=== PATIENT | male | born 1945 | race African-American/Black ===

== ENCOUNTER 2016-04-23 13:40 | Emergency (ER) | payer MEDICARE ==
[2016-04-23 14:29] VITALS: BP 155/87
--- NOTE | 2016-04-23 14:57 | UC ---
Lower Extremity/Ankle HPI - HPI Summary HPI Summary: 1) Developed blister on L great toe 2+ weeks ago; spot was between 1st and 2nd toe, and onto foot. The blister popped, he's been applying betadine and H2O2, and area seems to be healing slowly. Denies significant pain, drainage, or discoloration. 2) Has had nasal congestion, head mucus production, and "sinus pain" for more than a year. Does not have a PCP currently. - History of Current Complaint Chief Complaint: UCGeneralIllness Stated Complaint: WOUND ON TOE SINUS CONGESTION Time Seen by Provider: 04/23/16 14:31 Hx Obtained From: Patient Onset/Duration: Gradual Onset, Lasting Weeks Severity Initially: Mild Severity Currently: Mild Aggravating Factor(s): Other - wearing shoes Alleviating Factor(s): Rest Able to Bear Weight: Yes - Allergies/Home Medications Allergies/Adverse Reactions: Allergies Allergy/AdvReac Type Severity Reaction Status Date / Time No Known Allergies Allergy Verified 04/23/16 14:30 PMH/Surg Hx/FS Hx/Imm Hx Endocrine History Of: Denies: Diabetes, Thyroid Disease Cardiovascular History Of: Denies: Cardiac Disorders, Hypertension Respiratory History Of: Denies: COPD, Asthma GI/ History Of: Denies: Ulcer - Surgical History Surgical History: Yes Surgery Procedure, Year, and Place: PROSTATE - Family History Known Family History: Negative: Hypertension, Diabetes - Social History Occupation: Employed Full-time - drive truck Alcohol Use: None Substance Use Type: None Smoking Status (MU): Heavy Every Day Tobacco Smoker Type: Cigarettes, Cigars Amount Used/How Often: MORE THAN HALF PACK PER DAY Review of Systems Constitutional: Negative Skin: Other - open area L great toe Eyes: Negative ENT: Nasal Discharge Respiratory: Negative Cardiovascular: Negative Gastrointestinal: Negative Genitourinary: Negative Motor: Negative Neurovascular: Negative Musculoskeletal: Negative Neurological: Negative Psychological: Negative All Other Systems Reviewed And Are Negative: Yes Physical Exam Triage Information Reviewed: Yes Appearance: Well-Appearing, No Pain Distress, Well-Nourished Vital Signs: Initial Vital Signs Temp 98.2 F 04/23/16 14:24 Pulse 73 04/23/16 14:24 Resp 18 04/23/16 14:24 BP 155/87 04/23/16 14:24 Pulse Ox 100 04/23/16 14:24 Vital Signs Reviewed: Yes Eye Exam: Normal Eyes: Positive: Conjunctiva Clear ENT: Positive: Hearing grossly normal, Pharynx normal, Nasal congestion, TMs normal. Negative: Tonsillar swelling Dental Exam: Normal Neck exam: Normal Neck: Positive: Supple, Nontender, No Lymphadenopathy Respiratory Exam: Normal Respiratory: Positive: Chest non-tender, Lungs clear, Normal breath sounds, No respiratory distress, No accessory muscle use Cardiovascular Exam: Normal Cardiovascular: Positive: RRR, No Murmur Musculoskeletal Exam: Normal Neurological Exam: Normal Psychological Exam: Normal Skin Exam: Other - healing erosion L great toe, approx 2cm x 1cm, no erythema or drainage Lower Extremity Course/Dx - Differential Dx/Diagnosis Provider Diagnoses: healing blister L foot. chronic sinusitis. allergic rhinitis Discharge - Discharge Plan Condition: Stable Disposition: HOME Prescriptions: Cetirizine* [ZyrTEC*] 10 mg PO DAILY #30 tab DOXYcycline CAP(*) [DOXYcycline 100MG CAP(*)] 100 mg PO BID #30 cap Mometasone NASAL (NF) [Nasonex (NF)] 1 spray BOTH NARES BID #1 nasal.spr Patient Education Materials: Sinusitis (ED), Allergic Rhinitis (ED), Blister ( ED) Referrals: Shailesh Breg MD [Medical Doctor] - 2 Weeks Additional Instructions: Your foot wound appears to be healing without infection. It has taken a long time to heal because you were using the hydrogen peroxide; now that you have stopped it should continue to close up. Use a nonstick dressing and change it, along with your socks, at least once daily.
== END 2016-04-23 15:05 | disposition home or self-care (01) ==
LOC: UCEAST 13:40
DX: S90.422A Blister (nonthermal), left great toe, initial encounter (principal); F17.210 Nicotine dependence, cigarettes, uncomplicated; J32.9 Chronic sinusitis, unspecified; J30.9 Allergic rhinitis, unspecified; X58.XXXA Exposure to other specified factors, initial encounter; Y92.9 Unspecified place or not applicable
CPT/HCPCS: 99212; G0463

== ENCOUNTER 2017-07-14 11:58 | Emergency (ER) | payer MEDICARE ==
[2017-07-14 12:13] VITALS: BP 149/95
--- NOTE | 2017-07-14 12:43 | UC ---
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 He states this "flares up" from time to time after a fall about 2yrs ago. He is right handed. He experiences pain with movement in the shoulder blade area and constant numbness in the L hand. He doesnt drop anything and maintains strength. He is a smoker. He denies neck pain, sharp radiation of pain or pain at rest. Pain is usually a sharp, grabbing pain with movement. - History of Current Complaint Chief Complaint: UCUpperExtremity Stated Complaint: SHOULDER PAIN FINGERS NUMB Time Seen by Provider: 07/14/17 12:15 Hx Obtained From: Patient Pain Intensity: 7 - Allergies/Home Medications Allergies/Adverse Reactions: Allergies Allergy/AdvReac Type Severity Reaction Status Date / Time No Known Allergies Allergy Verified 07/14/17 12:13 PMH/Surg Hx/FS Hx/Imm Hx Cardiovascular History: Hypertension - takes aspirin only for his blood pressure - Surgical History Surgical History: Yes Surgery Procedure, Year, and Place: PROSTATE - Family History Known Family History: Negative: Hypertension, Diabetes - Social History Alcohol Use: None Substance Use Type: None Smoking Status (MU): Heavy Every Day Tobacco Smoker Type: Cigarettes, Cigars Amount Used/How Often: MORE THAN HALF PACK PER DAY Review of Systems Constitutional: Negative Respiratory: Other - denies cough, hemoptysis Cardiovascular: Negative Gastrointestinal: Negative Motor: Negative, Other - no weakness Neurovascular: Other - numbness in the entire L hand Musculoskeletal: Other: - pain with motion in L post shoulder Neurological: Numbness All Other Systems Reviewed And Are Negative: Yes Physical Exam Triage Information Reviewed: Yes Appearance: Well-Appearing, No Pain Distress, Well-Nourished Vital Signs: Initial Vital Signs Temp 36.4 C 07/14/17 12:10 Pulse 71 07/14/17 12:10 Resp 12 07/14/17 12:10 BP 149/95 07/14/17 12:10 Pulse Ox 98 07/14/17 12:10 Vital Signs Reviewed: Yes Eye Exam: Normal ENT: Positive: Normal ENT inspection Neck exam: Normal Neck: Positive: Supple, Nontender Respiratory Exam: Normal Respiratory: Positive: Chest non-tender, Lungs clear, Normal breath sounds Cardiovascular: Positive: RRR, No Murmur Musculoskeletal: Positive: Other: - no tenderness with palpation in the L post shoulder area. No lesions or rash. No crepitance thru ROM. Full ROM actively. No laxity. Neurological: Positive: Alert, Other: - subjective numbness in the L hand with decreased light touch sensation. No thenar/hypothenar wasting. Psychological Exam: Normal Skin Exam: Normal Diagnostics - Radiology No standard instances Xray Interpretation: Positive (See Comments) - Xray L shoulder: NEG Cervical Spine: Severe degen arthritis and compression C4-6. Cervical straightening. Radiology Interpretation Completed By: ED Physician Upper Extremity Course/Dx - Course Course Of Treatment: Pt with sx suspicious for radiculopathy. Xray confirms severe degenerative changes. Refer to PMD/ortho. Rx for arthritis (mobic) and radiculopathy (prednisone). - Differential Dx/Diagnosis Differential Diagnosis/HQI/PQRI: Arthritis, Fracture (Open), Osteomyelitis, Other - DJD/DDD, radiculopathy Provider Diagnoses: Cervical radiculopathy. L hand numbness. Degenerative osteoarthritis of the cervical spine Discharge - Sign-Out/Discharge Documenting (check all that apply): Discharge - Discharge Plan Condition: Good Disposition: HOME Referrals: No Primary Care Phys,NOPCP [Primary Care Provider] - - Billing Disposition and Condition Condition: GOOD Disposition: HOME
--- NOTE | 2017-07-14 13:01 | RAD ---
INDICATION: Neck pain with numbness down the left upper extremity COMPARISON: None. TECHNIQUE: 4 views of the cervical spine were obtained. FINDINGS: C1-C7 are visualized. Degenerative changes of the cervical spine include loss of intervertebral disc height and marginal osteophyte formation. These changes are most severe at C4-C7. There is a faint degree of C2 over C3 anterolisthesis. There is mild straightening of the normal cervical lordosis otherwise. There is no acute fracture. There is no prevertebral soft tissue swelling. IMPRESSION: Degenerative changes of the cervical spine as described above. If the patient's symptoms persist, follow-up imaging is recommended.
--- NOTE | 2017-07-14 13:02 | RAD ---
INDICATION: Chronic left shoulder pain. COMPARISON: None. TECHNIQUE: 4 views of the left shoulder were obtained. FINDINGS: The adequately corticated bones are in normal alignment. The glenohumeral joint exhibits mild sclerotic change of the bony glenoid labrum. There is a small degree of widening of the acromioclavicular joint measuring 7 mm in width. No fracture, dislocation or focal bony abnormality is seen. IMPRESSION: 1. MILDLY INCREASED JOINT SPACE OF THE LEFT ACROMION CLAVICULAR JOINT COULD BE SEEN IN THE SETTING OF GRADE 1 AC JOINT SEPARATION. 2. OTHERWISE AGE-APPROPRIATE DEGENERATIVE CHANGES ARE NOTED. If the patient's symptoms persist, follow-up imaging is recommended.
== END 2017-07-14 13:11 | disposition home or self-care (01) ==
LOC: UCEAST 11:58
DX: M47.22 Other spondylosis with radiculopathy, cervical region (principal); R20.0 Anesthesia of skin; I10 Essential (primary) hypertension; F17.210 Nicotine dependence, cigarettes, uncomplicated
CPT/HCPCS: 72040; 99212; G0463

== ENCOUNTER 2017-12-09 12:25 | Emergency (ER) | payer MEDICARE ==
[2017-12-09 13:06] VITALS: BP 141/88
--- NOTE | 2017-12-09 13:59 | UC ---
Lower Extremity/Ankle HPI - HPI Summary HPI Summary: PT C/O INTERMITTENT PAIN AND SWELLING IN LEFT GREAT TOE OVER THE PAST 5-6 MONTHS. HAS NOT SOUGHT EVALUATION BEFORE. STATES IT FLARED ABOUT A WEEK AGO. IS A BIT BETTER TODAY BUT STILL FEELS HOT AND SWOLLEN. DENIES TRAUMA. - History of Current Complaint Chief Complaint: UCLowerExtremity Stated Complaint: SWOLLEN FOOT Time Seen by Provider: 12/09/17 13:41 Hx Obtained From: Patient Onset/Duration: Gradual Onset, Lasting Weeks, Still Present Severity Initially: Moderate Severity Currently: Moderate Pain Intensity: 6 Pain Scale Used: 0-10 Numeric Aggravating Factor(s): Standing, Ambulation Alleviating Factor(s): Rest, Elevation Able to Bear Weight: Yes - WITH PAIN - Allergies/Home Medications Allergies/Adverse Reactions: Allergies Allergy/AdvReac Type Severity Reaction Status Date / Time No Known Allergies Allergy Verified 12/09/17 12:54 Home Medications: Home Medications Aspirin 81 mg CHEW TAB* 81 mg PO DAILY 12/09/17 [History Confirmed 12/09/17] PMH/Surg Hx/FS Hx/Imm Hx Cardiovascular History: Hypertension - Surgical History Surgical History: Yes Surgery Procedure, Year, and Place: PROSTATE 1990s - Family History Known Family History: Positive: Hypertension Negative: Diabetes - Social History Alcohol Use: None Substance Use Type: None Smoking Status (MU): Heavy Every Day Tobacco Smoker Type: Cigars Amount Used/How Often: 10 cigars/ day Review of Systems Constitutional: Negative Skin: Negative Respiratory: Negative Cardiovascular: Negative Gastrointestinal: Negative Musculoskeletal: Arthralgia, Decreased ROM, Edema All Other Systems Reviewed And Are Negative: Yes Physical Exam Triage Information Reviewed: Yes Appearance: Well-Appearing, No Pain Distress, Well-Nourished Vital Signs: Initial Vital Signs Temp 98.5 F 12/09/17 12:57 Pulse 78 12/09/17 12:57 Resp 18 12/09/17 12:57 BP 141/88 12/09/17 12:57 Pulse Ox 100 12/09/17 12:57 Vital Signs Reviewed: Yes Eyes: Positive: Conjunctiva Clear ENT: Positive: Hearing grossly normal Neck: Positive: Supple Respiratory: Positive: No respiratory distress, No accessory muscle use Cardiovascular: Positive: Pulses Normal Abdomen Description: Positive: Soft Musculoskeletal: Positive: ROM Limited @ - LEFT GREAT TOE, Edema @ - LEFT GREAT TOE, Other: - LEFT GREAT TOE TTP AND WARM TO TOUCH Neurological: Positive: Alert Psychological: Positive: Age Appropriate Behavior Skin: Negative: rashes Diagnostics - Radiology LEFT GREAT TOE XRAY Xray Interpretation: No Acute Changes Radiology Interpretation Completed By: Radiologist Lower Extremity Course/Dx - Differential Dx/Diagnosis 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 WILL TREAT FOR GOUT WITH PREDNISONE FOR 5 DAYS. STAY WELL HYDRATED. TAKE IBUPROFEN NEEDED FOR DISCOMFORT. RECOMMEND LABS DONE WHEN YOU HAVE BEEN SYMPTOM FREE FOR ABOUT 2 WEEKS[address] [facility] FOR THIS FOLLOW-UP APPOINTMENT. CALL THE NUMBER BELOW FOR ASSISTANCE IN ESTABLISHING WITH A PRIMARY CARE DOCTOR An additional resource available to assist in finding the appropriate physician for your health care needs is the [facility] ([facility]). You may contact them by calling [phone]. IF YOU ARE NOT IMPROVING EXPECTED CONSIDER FOLLOW-UP WITH A RECORDS AND INFORMATION MANAGER (FOOT DOCTOR). PODIATRY IN [facility] Dr. Juanito Babin [address] [place] Dr. Dc Andujar. [address] [place] [address] Please call his office at [phone] to make an appointment to be seen Dr. Ricardo Randhawa. [address] [place] [address] Dr. Jojo Delgado [address] [place] [address] - Billing Disposition and Condition Condition: STABLE Disposition: Home
--- NOTE | 2017-12-09 14:19 | RAD ---
HISTORY: PAIN, SWELLING COMPARISONS: None VIEWS: 3 , Frontal, lateral, and oblique views of the left forefoot FINDINGS: BONE DENSITY: Normal. BONES: There is no displaced fracture. JOINTS: There is no arthropathy. ALIGNMENT: There is no dislocation. SOFT TISSUES: Unremarkable. OTHER FINDINGS: None. IMPRESSION: NO ACUTE OSSEOUS INJURY. IF SYMPTOMS PERSIST, RECOMMEND REPEAT IMAGING.
== END 2017-12-09 14:50 | disposition home or self-care (01) ==
LOC: UCEAST 12:25
DX: M10.9 Gout, unspecified (principal); Z87.891 Personal history of nicotine dependence
CPT/HCPCS: 99213; G0463

== ENCOUNTER 2018-04-19 10:45 | Emergency (ER) | payer MEDICARE ==
[2018-04-19 10:55] VITALS: BP 131/71
--- NOTE | 2018-04-19 11:12 | UC ---
FLU HPI - HPI Summary HPI Summary: 72-year-old male presents with 5 day history of chills, body aches, general malaise, nasal congestion, sore throat, nonproductive cough, mild shortness of breath, and chest tightness. Denies ear pain, dysphagia, chest pain, palpitations, weakness, dizziness, abdominal pain, nausea, vomiting, or diarrhea. Did not receive his flu shot this year. Smokes 4-5 cigars daily. - History of Current Complaint Chief Complaint: UCGeneralIllness Stated Complaint: COUGH,CONGESTED Time Seen by Provider: 04/19/18 11:07 Hx Obtained From: Patient Pain Intensity: 10 - Allergy/Home Medications Allergies/Adverse Reactions: Allergies Allergy/AdvReac Type Severity Reaction Status Date / Time No Known Allergies Allergy Verified 04/19/18 10:55 Home Medications: Home Medications Dm/P-Ephed/Acetaminoph/Doxylam [Nighttime D Cold-Flu Rlf Liq] 296 ml PO ONCE PRN 04/19/18 [History Confirmed 04/19/18] PMH/Surg Hx/FS Hx/Imm Hx Previously Healthy: Yes GI/ History: Other - BPH - Surgical History Surgical History: Yes Surgery Procedure, Year, and Place: PROSTATE 1990s - Family History Known Family History: Positive: Hypertension Negative: Cardiac Disease, Diabetes, Respiratory Disease - Social History Occupation: Employed Full-time Lives: With Family Alcohol Use: None Substance Use Type: None Smoking Status (MU): Heavy Every Day Tobacco Smoker Type: Cigars Amount Used/How Often: 6-7 cigars/ day Household Exposure Type: Cigars Review of Systems All Other Systems Reviewed And Are Negative: Yes Constitutional: Positive: Fever, Chills, Fatigue Skin: Negative: Rash Eyes: Negative: Drainage, Eye Redness ENT: Positive: Sore Throat, Nasal Discharge, Sinus Congestion. Negative: Ear Ache, Sinus Pain/Tenderness Respiratory: Positive: Shortness Of Breath, Cough Cardiovascular: Negative: Palpitations, Chest Pain Gastrointestinal: Negative: Abdominal Pain, Vomiting, Diarrhea, Nausea Is Patient Immunocompromised?: No Physical Exam - Summary Physical Exam Summary: GENERAL APPEARANCE: Ill appearing, well developed, well nourished, alert and cooperative male in no acute distress. EYES: Conjunctiva clear. No discharge. Vision is grossly intact. EARS: External auditory canals and tympanic membranes clear, hearing grossly intact. NOSE: Mild-moderate nasal congestion with mucosal erythema and edema. No nasal discharge noted. THROAT: Pharyngeal erythema. No tonsilar inflammation, swelling, exudate, or lesions. NECK: Neck supple, non-tender without lymphadenopathy. CARDIAC: Normal S1 and S2. No S3, S4 or murmurs. Rhythm is regular. There is no peripheral edema, cyanosis or pallor. Extremities are warm and well perfused. Capillary refill is less than 2 seconds. LUNGS: No acute respiratory distress. Diffuse bilateral wheezes. ABDOMEN: Positive bowel sounds. Soft, nondistended, nontender. No guarding or rebound. No masses or hepatosplenomegally. MUSKULOSKELETAL: ROM intact to all extremities. No joint erythema or tenderness. Normal muscular development. Normal gait. SKIN: Skin normal color, texture and turgor with no lesions or eruptions. Triage Information Reviewed: Yes Vital Signs: Initial Vital Signs Temp 101.3 F 04/19/18 10:50 Pulse 112 04/19/18 10:50 Resp 20 04/19/18 10:50 BP 131/71 04/19/18 10:50 Pulse Ox 97 04/19/18 10:50 Vital Signs Reviewed: Yes Diagnostics - Laboratory Diagnostic Studies Completed/Ordered: Rapid flu positive influenza A. - Radiology No standard instances Radiology Interpretation Completed By: Radiologist Summary of Radiographic Findings: Patient Name: SAL BELL Medical Record#: [id number]. Ordering Physician: Pérez Hampton NP Acct.#: [id number]. : 1945 Age: 72 Sex: M Location: [facility]. Exam Date: 1117 ADM Status: REG ER. Order Information: CHEST PA LAT 2 VWS. Accession Number: [id number]. CPT: 38215. INDICATION: Cough and congestion. COMPARISON: Chest x-ray January 25, 2011. TECHNIQUE: PA and lateral views of the chest were obtained. FINDINGS: The heart and mediastinum are normal in size and contour. The lungs are grossly clear. There is no evidence of large pleural effusion. Visualized bones are normal for the patient's age. There is no radiographic evidence of free air beneath the diaphragm. IMPRESSION: No radiographic evidence of acute cardiopulmonary disease. Re-Evaluation - Re-Evaluation First Eval Re-Evaluation Time: 11:50 Change: Improved Comment: Post-neblizer treatment patient states breathing is much easier and chest tightness resolved. Bilateral breath sounds clear. Flu Course/Dx - Course Course Of Treatment: 72-year-old male presents with 5 day history of chills, body aches, general malaise, nasal congestion, sore throat, nonproductive cough , mild shortness of breath, and chest tightness. Denies ear pain, dysphagia, chest pain, palpitations, weakness, dizziness, abdominal pain, nausea, vomiting , or diarrhea. Did not receive his flu shot this year. Patient was febrile at triage with a temperature of 101.3 F, mildly tachycardic rate of 112, otherwise vital signs stable. Exam reveals ill-appearing male of -[place] descent , nasal congestion, mild pharyngeal erythema, and bilateral diffuse wheezing without acute respiratory distress. Rapid flu test was positive for influenza A. Chest x-ray showed no acute cardiopulmonary pathology. Patient was given a DuoNeb treatment with improvement of the wheezing and chest tightness. Due to duration of his symptoms he is not a good candidate for Tamiflu. Recommending symptomatic treatment including albuterol inhaler 2 puffs every 4-6 hours as needed for shortness of breath and wheezing. He's been counseled to follow up with his primary care provider in 3-5 days for recheck of symptoms. Warning symptoms were reviewed with the patient. He verbalizes understanding and agrees with plan of care. - Differential Dx/Diagnosis Differential Diagnosis/HQI/PQRI: Bronchitis, Influenza, Pneumonia, Upper Respiratory Infection Provider Diagnosis: Influenza A, Reactive airway disease that is not asthma Discharge - Sign-Out/Discharge Documenting (check all that apply): Patient Departure All imaging exams completed and their final reports reviewed: Yes - Discharge Plan Condition: Stable Disposition: HOME Prescriptions: Albuterol HFA INHALER* [Ventolin HFA Inhaler*] 2 puff INH Q4H PRN #1 mdi PRN Reason: Sob/Wheezing Patient Education Materials: Influenza (ED), Wheezing (ED) Referrals: No Primary Care Phys,NOPCP [Primary Care Provider] - Additional Instructions: Your flu test came back positive for the influenza A. Your chest x-ray was normal. Get plenty of rest. Drink plenty of fluids to avoid dehydration especially if you are running any fever. Use albuterol inhaler 2 puffs every 4-6 hours as needed for shortness of breath or wheezing. Take over the counter acetaminophen (Tylenol) or ibuprofen (Advil, Motrin) according to directions as needed for pain or fever. Use salt water gargles several times a day if you have a sore throat. You may also use Chloraseptic spray or Cepacol lonzenges according to directions which contain a numbing medication and can provide some temporary relief from your sore throat. Follow up with your primary care provider in 3-5 days for recheck of symptoms. Seek immediate medical attention in the emergency room if you have fever greater than 100.5 F despite taking acetaminophen or ibuprofen, have chest pain , difficulty breathing, become weak or dizzy, or have any worsening of symptoms. - Billing Disposition and Condition Condition: STABLE Disposition: Home
[2018-04-19] MEDS ORDERED: Albuterol/Ipratropium NEB.SOL* Albuterol 2.5 MG/Ipratropium 0.5 MG 3 ML INH ONE (11:18)
== END 2018-04-19 12:20 | disposition home or self-care (01) ==
LOC: UCEAST 10:45
DX: J09.X2 Influenza due to identified novel influenza A virus with other respiratory manifestations (principal); J45.909 Unspecified asthma, uncomplicated; F17.210 Nicotine dependence, cigarettes, uncomplicated
CPT/HCPCS: 71046; 99212; A9270-GY; G0463

== ENCOUNTER → 2018-08-28 17:12 | Emergency (ER) | payer MEDICARE ==
--- NOTE | 2018-08-28 19:28 | ED ---
Lower Extremity - HPI Summary HPI Summary: 73-year-old male presents with right leg pain for the past couple months. He states that he started getting some numbness and tingling over his right knee. Denies any injury. He states his veins are more prominent. He states gets a cold sensation and sensation on his legs. noticed some swelling in right leg. is on diuretic. Denies any rash. No fevers. denies any chest pain or shortness breath. He is on eliquis for CVA a week ago. Denies any weakness. pain is worse when he ambulates. is able to ambulate. he states that his veins are larger on the right then the left leg. has not missed a dose of eliquis since starting it a week ago. no rash. has chronic back pain that is unchanged. no numbness into thigh or lower leg only in knee. no urinary symptoms. no loss of bowel or bladder or saddle anaesthesia. - History of Current Complaint Chief Complaint: EDExtremityLower Stated Complaint: RIGHT LEG BURNING PER PT Time Seen by Provider: 08/28/18 19:06 Pain Intensity: 0 - Allergies/Home Medications Allergies/Adverse Reactions: Allergies Allergy/AdvReac Type Severity Reaction Status Date / Time No Known Allergies Allergy Verified 08/28/18 17:20 Home Medications: Home Medications Apixaban* [Eliquis*] 5 mg PO BID 08/28/18 [History Confirmed 08/28/18] Atorvastatin* [Lipitor*] 80 mg PO DAILY 08/28/18 [History Confirmed 08/28/18] Carvedilol TAB* [Coreg TAB*] 6.25 mg PO BID 08/28/18 [History Confirmed 08/28/18 ] Furosemide TAB* [Lasix TAB*] 20 mg PO DAILY 08/28/18 [History Confirmed 08/28/18 ] Ipratropium HFA INHALER(NF) [Atrovent Hfa Inhaler(NF)] 1 puff INH Q6H 08/28/18 [ History Confirmed 08/28/18] Losartan TAB* [Cozaar TAB*] 25 mg PO DAILY 08/28/18 [History Confirmed 08/28/18] Spironolactone 25 mg PO DAILY 08/28/18 [History Confirmed 08/28/18] PMH/Surg Hx/FS Hx/Imm Hx Endocrine/Hematology History: Reports: Hx Anticoagulant Therapy Denies: Hx Diabetes, Hx Thyroid Disease Cardiovascular History: Reports: Hx Hypertension Respiratory History: Denies: Hx Asthma, Hx Chronic Obstructive Pulmonary Disease (COPD) GI History: Denies: Hx Ulcer - Surgical History Surgery Procedure, Year, and Place: Infectious Disease History: No Infectious Disease History: Denies: Hx Hepatitis, Hx Human Immunodeficiency Virus (HIV), Traveled Outside the [place] in Last 30 Days - Family History Known Family History: Positive: Hypertension Negative: Cardiac Disease, Diabetes, Respiratory Disease - Social History Alcohol Use: None Substance Use Type: Reports: None Smoking Status (MU): Former Smoker Type: Cigars Amount Used/How Often: 6-7 cigars/ day Review of Systems Positive: Myalgia - right leg pain All Other Systems Reviewed And Are Negative: Yes Physical Exam Triage Information Reviewed: Yes Vital Signs On Initial Exam: Initial Vitals Temp Pulse Resp BP Pulse Ox 98.3 F 69 16 126/76 98 08/28/18 17:15 08/28/18 17:15 08/28/18 17:15 08/28/18 17:15 08/28/18 17:15 Vital Signs Reviewed: Yes Appearance: Positive: Well-Appearing Skin: Positive: Warm, Dry Head/Face: Positive: Normal Head/Face Inspection Eyes: Positive: Normal, Conjunctiva Clear ENT: Positive: Pharynx normal Respiratory/Lung Sounds: Positive: Clear to Auscultation, Breath Sounds Present Cardiovascular: Positive: Normal, RRR Musculoskeletal: Positive: Other - tenderness side of lower back, decreased sensation to top of right knee, prominent varicose veins, tenderness over right calf, good pulses with doppler, neg SLR Neurological: Positive: Normal Psychiatric: Positive: Normal Diagnostics - Vital Signs Vital Signs Temp Pulse Resp BP Pulse Ox 08/28/18 17:15 98.3 F 69 16 126/76 98 - Laboratory Result Diagrams: 08/28/18 20:03 08/28/18 19:21 Lab Statement: Any lab studies that have been ordered have been reviewed, and results considered in the medical decision making process. - Ultrasound No standard instances Ultrasound Interpretation Completed By: Radiologist Summary of Ultrasound Findings: IMPRESSION: No acute findings. No evidence of deep vein thrombosis. Incidental finding of the right mid femoral artery stenosis. Re-Evaluation - Re-Evaluation First Eval Re-Evaluation Time: 20:40 Comment: discussed that waiting on u/s Lower Extremity Course/Dx - Course Course Of Treatment: 73-year-old male presents with right leg pain for the past couple months. He states that he started getting some numbness and tingling over his right knee. Denies any injury. He states his veins are more prominent. He states gets a cold sensation and sensation on his legs. noticed some swelling in right leg. is on diuretic. Denies any rash. No fevers. denies any chest pain or shortness breath. He is on eliquis for CVA a week ago. Denies any weakness. pain is worse when he ambulates. is able to ambulate. On exam has tenderness over right calf. Good pulses with doppler. Leg is warm. Has decreased sensation grossly over kneecap. as has good pulses and extremity is pink and warm no sign of arterial occulsion. lab work wnl. u/ s shows no DVT. does show femoral artery stenosis. is already on blood thinners and a statin so can just follow up with primary. may need vascular in future. discussed case with dr duenas. patient understand and agrees with plan. - Diagnoses Differential Diagnosis/HQI/PQRI: Positive: DVT, Strain, Other - arterial occulsion Provider Diagnoses: Right leg pain, Femoral artery stenosis Discharge - Sign-Out/Discharge Documenting (check all that apply): Patient Departure Patient Received Moderate/Deep Sedation with Procedure: No - Discharge Plan Condition: Good Disposition: HOME Patient Education Materials: Leg Pain (ED) Referrals: No Primary Care Phys,NOPCP [Primary Care Provider] - Additional Instructions: follow up with primary you may need vascular surgeon in future Use compression socks Elevate Take Tylenol for pain every 6 hours Follow up with primary within 5 days Return to ED if develop any new or worsening symptoms - Billing Disposition and Condition Condition: GOOD Disposition: Home
[2018-08-28 19:46] LABS: Albumin 4.2 g/dL (3.2-5.2); Albumin/Globulin Ratio 1.1 (1-3); BUN/Creatinine Ratio 11.1 (8-20); Calcium 10.1 mg/dL (8.6-10.3); EGFR African American 81.6 (>60); EGFR Non-African American 67.4 (>60); Globulin 3.7 g/dL (2-4); Potassium 4.6 mmol/L (3.5-5.0); Total Bilirubin 0.5 mg/dL (0.2-1.0); Total Protein 7.9 g/dL (6.4-8.9)
[2018-08-28 19:47] LABS: Activated Partial Thrombo Time 25.1 seconds (26.0-36.3); INR 1.13 (0.82-1.09)
[2018-08-28 20:09] LABS: ABS Eosinophils 0.1 10^3/ul (0-0.6); ABS Lymphocytes 1.9 10^3/ul (1.0-4.8); ABS Monocytes 0.4 10^3/ul (0-0.8); ABS Neutrophils 1.6 10^3/ul (1.5-7.7); Eosinophil % 3.2 %; Hematocrit 42 % (42-52); Hemoglobin 13.8 g/dL (14.0-18.0); Lymphocyte % 46.7 %; Mean Corpuscular HGB Conc 33 g/dL (31-36); Mean Corpuscular Hemoglobin 28 pg (27-31); Mean Corpuscular Volume 86 fL (80-94); Mean Platelet Volume 7.3 fL (7.4-10.4); Platelet Count 159 10^3/uL (150-450); Red Blood Count 4.86 10^6 /uL (4.18-5.48); Red Cell Distribution Width 14 % (10.5-15)
[2018-08-28 22:20] VITALS: BP 119/75
== END | disposition home or self-care (01) ==
LOC: ED 17:12
DX: I70.201 Unspecified atherosclerosis of native arteries of extremities, right leg (principal); M79.604 Pain in right leg; I10 Essential (primary) hypertension; F17.290 Nicotine dependence, other tobacco product, uncomplicated; Z79.01 Long term (current) use of anticoagulants; Z86.73 Personal history of transient ischemic attack (TIA), and cerebral infarction without residual deficits; Z79.899 Other long term (current) drug therapy
CPT/HCPCS: 36415; 80053; 85025; 85610; 85730; 99282

== ENCOUNTER 2023-03-26 12:33 | Inpatient (IN) ==
[2023-03-26 14:14] LABS: ABS Monocytes 0.4 10^3/uL (0.0-1.1); ABS Neutrophils 3.3 10^3/uL (1.5-7.6); Eosinophil % 0.5 %; Hematocrit 40.8 % (38-53); Hemoglobin 13.8 g/dL (13.2-16.3); Lymphocyte % 20.8 %; Mean Corpuscular Hemoglobin 29.2 pg (27-33); Mean Corpuscular Hgb Conc 33.9 g/dL (31-36); Mean Corpuscular Volume 85.9 fL (80-97); Mean Platelet Volume 8.2 fL (7.5-11.2); Nucleated Red Blood Cells % 0.1 %/100WBC (0.0-0.8); Platelet Count 173 10^3/uL (150-450); Red Blood Count 4.75 10^6/uL (4.06-5.63); Red Cell Distribution Width 13.6 % (12-17); White Blood Count 4.8 10^3/uL (3.6-10.2)
[2023-03-26 14:34] LABS: C Reactive Protein 53.18 mg/L (<8.01); Calcium 9.8 mg/dL (8.6-10.3); Creatinine, Serum 0.92 mg/dL (0.67-1.17); Magnesium 2.1 mg/dL (1.9-2.7); Potassium 3.8 mmol/L (3.5-5.0); eGFR CKD-EPI 86.7 (>60)
[2023-03-26] MEDS ORDERED: Albuterol HFA INHALER 8 gm MDI INH ONE (14:46)
[2023-03-26 15:29] LABS: Erythrocyte Sed Rate 69 mm/Hr (0-19)
[2023-03-26] MEDS ORDERED: cefTRIAXone 1 gm/50 mL NS BAG 1 GM/50 ML BAG IVPB ONE (16:00)
[2023-03-26] MEDS ORDERED: Albuterol HFA INHALER 8 gm MDI INH PRN (17:35)
[2023-03-26] MEDS ORDERED: Enoxaparin 80 MG/0.8 ML SYR SUBCUT SCH ×2 (18:00)
[2023-03-27 06:09] LABS: ABS Eosinophils 0.1 10^3/uL (0.0-0.5); ABS Lymphocytes 1.1 10^3/uL (1.0-4.8); ABS Monocytes 0.4 10^3/uL (0.0-1.1); ABS Neutrophils 3.1 10^3/uL (1.5-7.6); Eosinophil % 1.1 %; Hematocrit 36.8 % (38-53); Hemoglobin 12.4 g/dL (13.2-16.3); Lymphocyte % 23.3 %; Mean Corpuscular Hemoglobin 28.6 pg (27-33); Mean Corpuscular Hgb Conc 33.6 g/dL (31-36); Mean Corpuscular Volume 85.2 fL (80-97); Mean Platelet Volume 8.7 fL (7.5-11.2); Platelet Count 128 10^3/uL (150-450); Red Blood Count 4.32 10^6/uL (4.06-5.63); Red Cell Distribution Width 13.5 % (12-17); White Blood Count 4.6 10^3/uL (3.6-10.2)
[2023-03-27 06:36] LABS: Albumin 3.3 g/dL (3.2-5.2); Calcium 9.2 mg/dL (8.6-10.3); Creatinine, Serum 0.81 mg/dL (0.67-1.17); Globulin 3.3 g/dL (2-4); HDL Cholesterol 38.5 mg/dL; Total Bilirubin 0.4 mg/dL (0.2-1.0); Total Protein 6.6 g/dL (6.4-8.9); eGFR CKD-EPI 91.9 (>60)
[2023-03-27] MEDS: Enoxaparin 80 MG/0.8 ML SYR SUBCUT SCH ×2 (07:51→09:44)
[2023-03-27 09:15] LABS: Activated Partial Thrombo Time 29.5 seconds (26.0-38.0); INR 1.21 (0.83-1.13)
[2023-03-27] MEDS ORDERED: Omeprazole 20 mg CAP (NF) PO SCH (14:00)
[2023-03-27] MEDS: cefTRIAXone 2 gm/50 mL D5W 2 GM/50 ML BAG IV SCH (15:20)
[2023-03-27] MEDS ORDERED: cefTRIAXone 2 gm/50 mL D5W 2 GM/50 ML BAG IV SCH (16:45)
[2023-03-27] MEDS ORDERED: Heparin 5000 UNITS/ML 1 mL VIAL IV ONE (17:00)
[2023-03-27] MEDS ORDERED: Morphine 2 MG/ML SYRINGE IV PRN (17:52)
[2023-03-28] MEDS ORDERED: Heparin 5000 UNITS/ML 1 mL VIAL IV ONE (02:00)
[2023-03-28 06:49] LABS: ABS Lymphocytes 1.4 10^3/uL (1.0-4.8); ABS Monocytes 0.4 10^3/uL (0.0-1.1); ABS Neutrophils 3.4 10^3/uL (1.5-7.6); Eosinophil % 0.8 %; Hematocrit 35.5 % (38-53); Hemoglobin 11.9 g/dL (13.2-16.3); Lymphocyte % 26.3 %; Mean Corpuscular Hemoglobin 28.9 pg (27-33); Mean Corpuscular Hgb Conc 33.6 g/dL (31-36); Mean Corpuscular Volume 86.1 fL (80-97); Mean Platelet Volume 8.3 fL (7.5-11.2); Platelet Count 148 10^3/uL (150-450); Red Blood Count 4.13 10^6/uL (4.06-5.63); Red Cell Distribution Width 13.7 % (12-17); White Blood Count 5.2 10^3/uL (3.6-10.2)
[2023-03-28 07:06] LABS: Calcium 9.1 mg/dL (8.6-10.3); Creatinine, Serum 0.9 mg/dL (0.67-1.17); Potassium 3.9 mmol/L (3.5-5.0); eGFR CKD-EPI 89.1 (>60)
[2023-03-28] MEDS ORDERED: Iodixanol 320 (CONTRAST) 100 ML SDV ONE (07:44)
[2023-03-28] MEDS ORDERED: Lidocaine 1% VIAL 10 MG/ML 30 ML VIAL ONE (07:44)
[2023-03-28] MEDS ORDERED: Heparin 2 UNITS/ML IVPREMIX 3,000 UNIT/1,500 ML BAG IV ONE (07:45)
[2023-03-28] MEDS ORDERED: Potassium Chlor 20 meq TAB.ER PO ONE (08:21)
[2023-03-28] MEDS ORDERED: Heparin 1,000 UNIT/ML 10 ml (10,000 UNITS) CATHLAB/DIALYSIS ONE (08:33)
[2023-03-28] MEDS ORDERED: Midazolam 5 mg/5 ml VIAL 1 mg/ml 5 ml VIAL (5 mg) ONE (08:33)
[2023-03-28] MEDS ORDERED: fentaNYL 100 mcg/2 ml 50 MCG/ML VIAL ONE (08:33)
[2023-03-28] MEDS ORDERED: Heparin DRIP 25,000 UNITS BAG 25,000 UNITS/250 ML BAG IV SCH (11:30)
[2023-03-28] MEDS ORDERED: Heparin 5000 UNITS/ML 1 mL VIAL IV SCH (12:00)
[2023-03-28 12:10] LABS: ABS Basophils 0.1 10^3/uL (0.0-0.1); ABS Lymphocytes 1.3 10^3/uL (1.0-4.8); ABS Monocytes 0.4 10^3/uL (0.0-1.1); ABS Neutrophils 3.5 10^3/uL (1.5-7.6); ABS Nucleated RBC 0.01 10^3/ul; Eosinophil % 0.4 %; Hematocrit 36.4 % (38-53); Hemoglobin 12.4 g/dL (13.2-16.3); Lymphocyte % 24.2 %; Mean Corpuscular Hemoglobin 29.2 pg (27-33); Mean Corpuscular Hgb Conc 34.1 g/dL (31-36); Mean Corpuscular Volume 85.5 fL (80-97); Mean Platelet Volume 7.7 fL (7.5-11.2); Nucleated Red Blood Cells % 0.1 %/100WBC (0.0-0.8); Platelet Count 166 10^3/uL (150-450); Red Blood Count 4.26 10^6/uL (4.06-5.63); Red Cell Distribution Width 13.6 % (12-17); White Blood Count 5.2 10^3/uL (3.6-10.2)
[2023-03-28 12:39] LABS: Creatinine, Serum 0.83 mg/dL (0.67-1.17); eGFR CKD-EPI 91.3 (>60)
[2023-03-28 13:18] LABS: Ferritin 111.5 ng/mL (24-336)
[2023-03-28] MEDS: cefTRIAXone 2 gm/50 mL D5W 2 GM/50 ML BAG IV SCH (15:38)
[2023-03-28 16:04] LABS: Rapid COVID-19 Molecular Undetected (Undetected)
[2023-03-28 17:39] VITALS: BP 97/59
== END 2023-03-28 18:35 | disposition short-term general hospital (02) | DRG 300 ==
LOC: ED 12:33 → EDHOLD 12:33 → MED 19:04
PROVIDERS: ADMIT Internal Medicine; ATTEND Internal Medicine